=== PATIENT | female | born 1955 | race Caucasian/White ===

== ENCOUNTER 2016-06-13 21:21 | Emergency (ER) | payer SELFPAY ==
[~2016-06-13] VITALS: Ht 160 cm; Wt 68.0 kg
[2016-06-13 21:26] VITALS: BP 142/97
== END 2016-06-14 | disposition left against medical advice (07) ==
LOC: ER 21:22
DX: Z53.21 Procedure and treatment not carried out due to patient leaving prior to being seen by health care provider (principal)